=== PATIENT | female | born 1990 | race Caucasian/White ===

== ENCOUNTER 2020-04-13 11:38 | Inpatient (IN) ==
[2020-04-13] MEDS ORDERED: OXYTOCIN 30 UNITS/500 ML BAG IV PRN ×2 (11:45→13:14)
--- NOTE | 2020-04-13 11:51 | History & Physical Report ---
Date of Service April 13, 2020 Assessment & Plan (1) Encounter for induction of labor: - 29 yo F here for induction of labor, SROM this morning. - For Pitocin augmentation if not having regular timeable contractions after 1 hour of walking and using her maternity ball. - Continue home asthma medications. - GBS negative, Rubella immune, blood type O+, Ab screen negative. - Repeat UDS today for Hx marijuana use. Last UDS on NOB appointment was negative. - Expect . (2) SROM (spontaneous rupture of membranes): (3) History of marijuana use: (4) Asthma: History of Present Illness Chief Complaint: SROM Primary Care Provider: Theodore Gerard, DO 29 yo F with EDC 04/09/20 admitted with report of SROM this morning, for induction of labor. This morning reports several gushes of fluid in a row, clear with some blood tinge, possibly around 8am however is not 100% sure. Was seen by Dr. Marrero today in the office and found to be ruptured, 2cm dilated, 75% effaced. plan does not include epidural at this time. Confirms good movement, no contractions. Medical Hx: PCOS (this was spontaneous, has Hx of irregular periods sometimes q3 months prior to ), Asthma (at home uses montelukast daily, budesonide inh daily, albuterol inh PRN) Surgical Hx: wisdom tooth extraction Loss Prevention Agent Hx: no Hx abnormal PAPs; Hx chlamydia infection 2 years ago (chlamydia testing 12/2019 negative) Social Hx: Hx marijuana abuse (NOB UDS negative), lives with FOB Labs: Blood type: O+ Antibody screen: negative Rubella status: immune VDLR/RPR: nonreactive Gonorrhea: negative Chlamydia: negative HIV: negative GBS: negative HbSAg: negative Glucose tolerance test x2: normal Allergies Allergy/AdvReac Type Severity Reaction Status Date / Time No Known Allergies Allergy Verified 04/13/20 10:19 Home Medications Home Medications Medication Instructions Recorded Confirmed Type prenat.vits,milena,wwz-[id number] 1 tab PO DAILY 10/14/19 04/13/20 History albuterol sulfate 1 puff INHALATION DAILY PRN 10/25/19 04/13/20 History albuterol sulfate 0.63 mg/3 mL 0.63 mg INH TID PRN #75 ml 11/07/19 04/13/20 Rx solution for nebulization budesonide 90 mcg/actuation breath 1 puffs INH BID #1 ea 11/07/19 04/13/20 Rx activated powder inhaler famotidine 20 mg tablet 20 mg PO DAILY #30 tab 02/23/20 04/13/20 Rx montelukast 10 mg tablet 10 mg PO PM #90 tab 04/03/20 04/13/20 Rx Patient History Surgical History S/P wisdom tooth extraction Family History Mother Diabetes Hypertension Anxiety Bipolar disorder Depression Father Heart murmur Grandfather Prostate cancer, Onset Age: 65 Grandmother Pancreatic cancer, Onset Age: 47 Social History Preferred Language: Serbian Beliefs That Will Affect Care: None marital status: Single marital status details: Jag Gongoraer (27) [phone] Current Living Situation: Other Current Living Situation Comment: lives with fob, cat-fob changing litter current occupational status: employed 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 Feels Safe at Home: Yes Smoking Status: Never smoker Hx Alcohol Use: No Hx Substance Use: No Review of Systems Constitutional: denies fever, chills, sweats, headache Respiratory: denies SOB, difficulty breathing Cardiac: denies CP, chest palpitations, chest pressure Breast: denies breast pain : denies dysuria Physical Exam Physical Exam: General: patient is alert and oriented, in NAD Cardiac: +S1/S2, no murmurs rubs or gallops Respiratory: lungs CTA b/l, anteriorly and posteriorly, no wheezes rales or rhonchi, no increased work of breathing, symmetric chest rise, no respiratory distress Abdomen: Gravid, fundal height is term, + FHTs, baby is presenting vertex, no palpable contractions, EFW 8-9 lbs Uterus: uterine fundus firm Lower Extremities: no LE edema or swelling, no deep calf pain, Mahtew's sign negative b/l Genitourinary: Manual OB Exam: + cervical dilation 3 cm, + cervical effacement (75%) and + station -2 OB Exam Monitor Tracing: + external FHT monitor used, + external uterine monitor used and + normal FHT variability Monitoring External Monitor 140s with good variability Tocodynamometer no timeable contractions Supervising Physician Co-Signing Physician Notes Resident Physician Supervision Note: I was present with Dr. Ballard during the history and exam. I discussed the case with the resident and agree with the findings and plan as documented in the note. Any exceptions or clarifications are listed here: Unclear as to when patient ruptured. GBS (-), will hold antibiotics unless signs and sx's of chorio develops. Documented By: Berny Keller Jr, MD, FACOG Resident Activity Tracking Resident Involvement: Resident Care Provided Care Provided: OB Delivery
[2020-04-13 12:08] LABS: Hematocrit (blood only) 37.4 % (37-47); Hemoglobin 13.1 g/dL (12.0-16.0); Mean Corpuscular Hemoglobin 30.1 pg (25-34); Mean Platelet Volume 10.6 fL (7.4-10.4); Platelet Count 177 K/uL (130-400); RDW Coefficient of Variation 13.5 % (11.5-14.5); RDW Standard Deviation 42.5 fL (36.4-46.3); Red Blood Count 4.35 M/uL (4.2-5.4); White Blood Count 13.02 K/uL (4.8-10.8)
[2020-04-13] MEDS: LACTATED RINGER'S 1,000 ML IV PRN ×3 (12:20→22:51)
[2020-04-13 12:47] LABS: Amphetamines+Metham, Urine Neg (Neg); Barbiturates, Urine Neg (Neg); Benzodiazepine, Urine Neg (Neg); Cocaine, Urine Neg (Neg); MDMA (Ecstacy), Urine Neg (Neg); Methadone, Urine Neg (Neg); Opiate, Urine Neg (Neg); Phencyclidine, Urine Neg (Neg)
[2020-04-13] MEDS ORDERED: ALBUTEROL HFA 8 GM INHALER INH PRN (13:34)
--- NOTE | 2020-04-13 18:22 | Labor Progress Brief Note ---
Date of Service April 13, 2020 Subjective Reason For Note: Routine Evaluation Assessment & Plan (1) SROM (spontaneous rupture of membranes): - tracing Cat II - continue pitocin - doing well Physical Exam Genitourinary: Cervix: no change, AROM of forebag, moderate meconium, IUPC placed Results & Data Vital Signs (Past 12 Hours) Vital Signs Temp Pulse Resp BP 04/13/20 18:15 68 140/78 04/13/20 17:30 18 04/13/20 17:00 98.1 F 78 18 155/70 H 04/13/20 16:17 18 04/13/20 16:00 20 04/13/20 15:56 98.6 F 97 H 151/92 H 04/13/20 15:30 20 04/13/20 15:03 20 04/13/20 15:00 20 04/13/20 14:35 20 04/13/20 14:22 94 H 144/78 H 04/13/20 14:20 98.8 F 20 04/13/20 13:10 20 04/13/20 12:52 77 142/73 H 04/13/20 12:51 90 154/75 H 04/13/20 12:40 20 04/13/20 12:07 86 139/98 04/13/20 11:58 86 139/98 04/13/20 11:53 98.6 F 18 Coding Level of Care Code None Diagnoses SROM (spontaneous rupture of membranes)
[2020-04-13] MEDS: FLUTICASONE FUROATE 100MCG 14 PUFFS/INHALER INH SCH ×2 (18:33→22:50)
--- NOTE | 2020-04-13 21:44 | Labor Progress Brief Note ---
Date of Service April 13, 2020 Subjective Reason For Note: Routine Evaluation Assessment & Plan (1) SROM (spontaneous rupture of membranes): - tracing Cat 11, good accelerations and variability - pitocin at 20mU, inadequate labor - will allow nursing to increase to 30mU - all questions answered of patient Physical Exam Genitourinary: Cx: deferred Results & Data Vital Signs (Past 12 Hours) Vital Signs Temp Pulse Resp BP 04/13/20 21:16 73 137/76 04/13/20 21:15 99.1 F 04/13/20 20:02 67 130/80 04/13/20 19:09 99.1 F 75 20 140/81 04/13/20 19:01 18 04/13/20 18:30 18 04/13/20 18:15 98.6 F 68 18 140/78 04/13/20 18:00 18 04/13/20 17:30 18 04/13/20 17:00 98.1 F 78 18 155/70 H 04/13/20 16:17 18 04/13/20 16:00 20 04/13/20 15:56 98.6 F 97 H 151/92 H 04/13/20 15:30 20 04/13/20 15:03 20 04/13/20 15:00 20 04/13/20 14:35 20 04/13/20 14:22 94 H 144/78 H 04/13/20 14:20 98.8 F 20 04/13/20 13:10 20 04/13/20 12:52 77 142/73 H 04/13/20 12:51 90 154/75 H 04/13/20 12:40 20 04/13/20 12:07 86 139/98 04/13/20 11:58 86 139/98 04/13/20 11:53 98.6 F 18 Coding Level of Care Code None Diagnoses SROM (spontaneous rupture of membranes)
[2020-04-13] MEDS ORDERED: ePHEDrine sulfate 50 MG/ML AMP ONE (22:41)
[2020-04-13] MEDS ORDERED: BUPIVACAINE 0.25% 30 ML VIAL ONE (22:41)
[2020-04-13] MEDS ORDERED: fentaNYL citrate 100 MCG/2 ML VIAL ONE (22:41)
[2020-04-13] MEDS ORDERED: fentaNYL 2MCG/ML ROPIV 1.25MG/ML 100 ML BAG EPI ONE (22:42)
--- NOTE | 2020-04-13 23:51 | Anesthesiology Consultation ---
Date of Service April 13, 2020 Assessment & Plan Chart Review Chart Review: Acceptable Risk for Labor Epidural Consults Requested none History Height/Weight Height: 5 ft 2 in Weight: 105.233 kg Allergies Allergy/AdvReac Type Severity Reaction Status Date / Time No Known Allergies Allergy Verified 04/13/20 10:19 Medications Home Medications Medication Instructions Recorded Confirmed Last Taken prenat.vits,milena,sbj-[id number]-leyih 1 tab PO DAILY 10/14/19 04/13/20 04/12/20 17:00 albuterol sulfate 1 puff INHALATION DAILY PRN 10/25/19 04/13/20 Unknown albuterol sulfate 0.63 mg/3 mL 0.63 mg INH TID PRN #75 ml 11/07/19 04/13/20 Unkn own solution for nebulization budesonide 90 mcg/actuation breath 1 puffs INH BID #1 ea 11/07/19 04/13/20 04/12/20 17:00 activated powder inhaler famotidine 20 mg tablet 20 mg PO DAILY #30 tab 02/23/20 04/13/20 04/12/20 17:00 montelukast 10 mg tablet 10 mg PO PM #90 tab 04/03/20 04/13/20 04/12/20 17:00 Active Medications Generic Name Dose Route Start Last Admin Trade Name Freq PRN Reason Stop Dose Admin Fluticasone Furoate 1 puffs 04/13/20 15:00 04/13/20 22:50 Arnuity Ellipta 100mcg INH 05/13/20 14:59 1 puffs DAILY LUCERO Administration Lactated Ringer's 1,000 mls @ 125 mls/hr 04/13/20 11:45 04/13/20 22:52 Lr IV 04/15/20 11:44 999 mls/hr .Q8H PRN Infusion L&D Protocol Protocol Oxytocin 30 units in 500 mls @ 24 mls/hr 04/13/20 13:14 04/13/20 22:30 Pitocin IV 04/15/20 13:13 1.44 units/hr .[id number] PRN 24 mls/hr Labor Induction/Augmentation Titration Protocol 1.44 UNITS/HR Past Family History Family History Mother Diabetes Hypertension Anxiety Bipolar disorder Depression Father Heart murmur Grandfather Prostate cancer, Onset Age: 65 Grandmother Pancreatic cancer, Onset Age: 47 Past Surgical History Surgical History S/P wisdom tooth extraction Social History Smoking Status: Never smoker Hx Alcohol Use: No Hx Substance Use: No Physical Exam Vital Signs Last Vital Signs Temp 36.8 C 04/13/20 23:40 Pulse 108 H 04/13/20 23:46 Resp 20 04/13/20 23:40 BP 141/64 H 04/13/20 23:44 Pulse Ox 97 04/13/20 23:46 Testing Laboratory Results 04/13/20 12:01
[2020-04-13] MEDS ORDERED: NALOXONE HCL 1 MG in SODIUM CHLORIDE 0.9% 1000ML 1,000 ML IV PRN (23:53)
[2020-04-13] MEDS ORDERED: DiphenhydrAMINE HCL 50 MG/ML VIAL IV PRN (23:53)
[2020-04-13] MEDS ORDERED: ePHEDrine sulfate 50 MG/ML AMP IV PRN (23:53)
[2020-04-13] MEDS ORDERED: fentaNYL 2MCG/ML ROPIV 1.25MG/ML 100 ML BAG EPI PRN (23:53)
[2020-04-13] MEDS ORDERED: NALBUPHINE HCL INJ 10 MG/ML AMP IV PRN (23:53)
[2020-04-13] MEDS ORDERED: NALOXONE HCL 0.4 MG/1 ML VIAL/CARP IV PRN (23:53)
[2020-04-14] MEDS: MONTELUKAST SODIUM 10 MG TABLET PO SCH ×2 (00:05→20:09)
--- NOTE | 2020-04-14 02:10 | Labor Progress Brief Note ---
Date of Service April 14, 2020 Subjective Reason For Note: Routine Evaluation Assessment & Plan (1) SROM (spontaneous rupture of membranes): - tracing Cat II, variability with acclerations - pt now comfortable with epidural - new IUPC placed - will evaluate labor strength with new IUPC Physical Exam Genitourinary: Cx: 80/-2. meconium. new IUPC placed Results & Data Vital Signs (Past 12 Hours) Vital Signs Temp Pulse Resp BP Pulse Ox 04/14/20 02:06 90 94 04/14/20 02:04 89 94 04/14/20 02:01 85 111/57 L 95 04/14/20 02:00 18 04/14/20 01:57 85 94 04/14/20 01:56 86 95 04/14/20 01:51 87 94 04/14/20 01:46 84 109/60 95 04/14/20 01:44 86 94 04/14/20 01:41 87 95 04/14/20 01:38 87 94 04/14/20 01:36 88 95 04/14/20 01:33 86 94 04/14/20 01:31 83 107/56 L 95 04/14/20 01:30 18 04/14/20 01:26 86 95 04/14/20 01:25 87 94 04/14/20 01:21 84 95 04/14/20 01:16 82 119/61 95 04/14/20 01:11 82 96 04/14/20 01:06 82 96 04/14/20 01:01 78 95 04/14/20 01:00 98.4 F 87 20 130/59 L 04/14/20 00:56 87 94 04/14/20 00:55 83 94 04/14/20 00:51 84 94 04/14/20 00:49 80 94 04/14/20 00:46 76 94 04/14/20 00:45 81 123/59 L 04/14/20 00:44 90 93 04/14/20 00:41 93 H 94 04/14/20 00:38 95 H 94 04/14/20 00:36 92 H 95 04/14/20 00:32 88 133/63 94 04/14/20 00:31 89 95 04/14/20 00:30 18 04/14/20 00:26 98 H 95 04/14/20 00:21 85 95 04/14/20 00:16 92 H 124/59 L 95 04/14/20 00:11 85 95 04/14/20 00:06 85 96 04/14/20 00:01 86 96 04/14/20 00:00 20 04/13/20 23:59 128/71 04/13/20 23:56 90 97 04/13/20 23:55 81 20 121/70 04/13/20 23:51 79 128/70 97 04/13/20 23:50 20 04/13/20 23:46 108 H 97 04/13/20 23:45 20 04/13/20 23:44 93 H 141/64 H 04/13/20 23:42 91 H 129/60 04/13/20 23:41 91 H 97 04/13/20 23:40 98.2 F 97 H 20 132/56 L 04/13/20 23:38 96 H 133/66 04/13/20 23:36 95 H 135/63 97 04/13/20 23:34 92 H 132/61 04/13/20 23:32 94 H 137/64 04/13/20 23:31 83 98 04/13/20 23:30 83 20 127/56 L 04/13/20 23:28 82 141/65 H 04/13/20 23:26 78 141/65 H 96 04/13/20 23:25 20 04/13/20 23:24 77 142/68 H 04/13/20 23:22 75 133/69 04/13/20 23:21 68 98 04/13/20 23:20 75 20 125/69 04/13/20 23:16 74 99 04/13/20 23:11 79 99 04/13/20 23:10 75 155/83 H 04/13/20 23:06 86 98 04/13/20 22:05 67 151/80 H 04/13/20 21:16 73 137/76 04/13/20 21:15 99.1 F 04/13/20 20:02 67 130/80 04/13/20 19:09 99.1 F 75 20 140/81 05 19:01 18 04/13/20 18:30 18 04/13/20 18:15 98.6 F 68 18 140/78 04/13/20 18:00 18 04/13/20 17:30 18 04/13/20 17:00 98.1 F 78 18 155/70 H 04/13/20 16:17 18 04/13/20 16:00 20 04/13/20 15:56 98.6 F 97 H 151/92 H 04/13/20 15:30 20 04/13/20 15:03 20 04/13/20 15:00 20 04/13/20 14:35 20 04/13/20 14:22 94 H 144/78 H 04/13/20 14:20 98.8 F 20 Coding Level of Care Code None Diagnoses SROM (spontaneous rupture of membranes)
[2020-04-14] MEDS: LACTATED RINGER'S 1,000 ML IV PRN (04:49)
--- NOTE | 2020-04-14 06:43 | Labor Progress Brief Note ---
Date of Service April 14, 2020 Subjective Reason For Note: Routine Evaluation Assessment & Plan (1) SROM (spontaneous rupture of membranes): - tracing Cast II with moderate variability with acclerations - IUPC not functioning well - pitocin at 40mU - slow cervical change being made - will continue with pit - all questions answered of the patient Physical Exam Genitourinary: Cervix: 6-/-1 Results & Data Vital Signs (Past 12 Hours) Vital Signs Temp Pulse Resp BP Pulse Ox 04/14/20 06:36 83 98 04/14/20 06:31 88 153/70 H 98 04/14/20 06:30 18 04/14/20 06:26 94 H 96 04/14/20 06:21 99 H 97 04/14/20 06:16 85 98 04/14/20 06:15 86 158/86 H 04/14/20 06:11 85 97 04/14/20 06:06 85 97 04/14/20 06:05 100.0 F H 20 04/14/20 06:01 87 138/83 96 04/14/20 06:00 18 04/14/20 05:58 97 H 94 04/14/20 05:56 93 H 94 04/14/20 05:51 89 94 04/14/20 05:47 90 94 04/14/20 05:46 93 H 139/71 95 04/14/20 05:41 87 94 04/14/20 05:40 86 94 04/14/20 05:36 86 95 04/14/20 05:35 87 94 04/14/20 05:31 87 95 04/14/20 05:30 84 18 149/68 H 94 04/14/20 05:26 89 95 04/14/20 05:24 88 94 04/14/20 05:21 84 95 04/14/20 05:16 84 146/77 H 95 04/14/20 05:11 83 96 04/14/20 05:06 89 97 04/14/20 05:01 85 146/87 H 96 04/14/20 04:59 18 04/14/20 04:56 83 97 04/14/20 04:51 82 98 04/14/20 04:46 90 130/76 96 04/14/20 04:41 82 98 04/14/20 04:36 83 98 04/14/20 04:31 82 98 04/14/20 04:30 81 20 139/67 04/14/20 04:26 80 98 04/14/20 04:21 80 98 04/14/20 04:16 80 97 04/14/20 04:15 99.5 F 80 129/60 04/14/20 04:11 78 96 04/14/20 04:06 79 97 04/14/20 04:01 76 129/58 L 95 04/14/20 04:00 20 04/14/20 03:56 84 96 04/14/20 03:51 86 95 04/14/20 03:47 83 139/60 93 04/14/20 03:46 83 95 04/14/20 03:42 88 94 04/14/20 03:41 91 H 95 04/14/20 03:36 86 94 04/14/20 03:31 84 128/57 L 95 04/14/20 03:29 85 18 94 04/14/20 03:26 84 95 04/14/20 03:23 83 94 04/14/20 03:21 81 95 04/14/20 03:18 85 94 04/14/20 03:16 84 95 04/14/20 03:15 81 123/61 04/14/20 03:11 84 95 04/14/20 03:07 82 94 04/14/20 03:06 81 95 04/14/20 03:01 82 120/67 95 04/14/20 02:56 83 95 04/14/20 02:55 82 94 04/14/20 02:51 79 94 04/14/20 02:49 80 94 04/14/20 02:47 77 118/63 04/14/20 02:46 81 94 04/14/20 02:44 81 94 04/14/20 02:41 82 94 04/14/20 02:39 80 94 04/14/20 02:36 80 94 04/14/20 02:34 81 94 04/14/20 02:32 78 124/59 L 06 02:31 80 94 04/14/20 02:30 20 04/14/20 02:27 79 94 04/14/20 02:26 81 94 04/14/20 02:22 79 94 04/14/20 02:21 79 95 04/14/20 02:16 82 95 04/14/20 02:15 79 112/65 04/14/20 02:11 81 95 04/14/20 02:10 98.4 F 04/14/20 02:06 90 94 04/14/20 02:04 89 94 04/14/20 02:01 85 111/57 L 95 04/14/20 02:00 18 04/14/20 01:57 85 94 04/14/20 01:56 86 95 04/14/20 01:51 87 94 04/14/20 01:46 84 109/60 95 04/14/20 01:44 86 94 04/14/20 01:41 87 95 04/14/20 01:38 87 94 04/14/20 01:36 88 95 04/14/20 01:33 86 94 04/14/20 01:31 83 107/56 L 95 04/14/20 01:30 18 04/14/20 01:26 86 95 04/14/20 01:25 87 94 04/14/20 01:21 84 95 04/14/20 01:16 82 119/61 95 04/14/20 01:11 82 96 04/14/20 01:06 82 96 04/14/20 01:01 78 95 04/14/20 01:00 98.4 F 87 20 130/59 L 04/14/20 00:56 87 94 04/14/20 00:55 83 94 04/14/20 00:51 84 94 04/14/20 00:49 80 94 04/14/20 00:46 76 94 04/14/20 00:45 81 123/59 L 04/14/20 00:44 90 93 04/14/20 00:41 93 H 94 04/14/20 00:38 95 H 94 04/14/20 00:36 92 H 95 04/14/20 00:32 88 133/63 94 04/14/20 00:31 89 95 04/14/20 00:30 18 04/14/20 00:26 98 H 95 04/14/20 00:21 85 95 04/14/20 00:16 92 H 124/59 L 95 04/14/20 00:11 85 95 04/14/20 00:06 85 96 04/14/20 00:01 86 96 04/14/20 00:00 20 04/13/20 23:59 128/71 04/13/20 23:56 90 97 04/13/20 23:55 81 20 121/70 04/13/20 23:51 79 128/70 97 04/13/20 23:50 20 04/13/20 23:46 108 H 97 04/13/20 23:45 20 04/13/20 23:44 93 H 141/64 H 04/13/20 23:42 91 H 129/60 04/13/20 23:41 91 H 97 04/13/20 23:40 98.2 F 97 H 20 132/56 L 04/13/20 23:38 96 H 133/66 04/13/20 23:36 95 H 135/63 97 04/13/20 23:34 92 H 132/61 04/13/20 23:32 94 H 137/64 04/13/20 23:31 83 98 04/13/20 23:30 83 20 127/56 L 04/13/20 23:28 82 141/65 H 04/13/20 23:26 78 141/65 H 96 04/13/20 23:25 20 04/13/20 23:24 77 142/68 H 04/13/20 23:22 75 133/69 04/13/20 23:21 68 98 04/13/20 23:20 75 20 125/69 04/13/20 23:16 74 99 04/13/20 23:11 79 99 04/13/20 23:10 75 155/83 H 04/13/20 23:06 86 98 04/13/20 22:05 67 151/80 H 04/13/20 21:16 73 137/76 04/13/20 21:15 99.1 F 04/13/20 20:02 67 130/80 04/13/20 19:09 99.1 F 75 20 140/81 04/13/20 19:01 18 Coding Level of Care Code None Diagnoses SROM (spontaneous rupture of membranes)
[2020-04-14] MEDS ORDERED: ONDANSETRON INJ 2 MG/ML 2 ML VIAL IV PRN ×3 (07:58→10:16)
[2020-04-14] MEDS ORDERED: ONDANSETRON INJ 2 MG/ML 2 ML VIAL ONE (08:01)
[2020-04-14] MEDS ORDERED: CITRIC ACID/SODIUM CITRATE 15 ML UDC ONE (08:40)
--- NOTE | 2020-04-14 08:43 | Labor Progress Brief Note ---
Date of Service April 14, 2020 Subjective Reason For Note: Routine Evaluation Assessment & Plan (1) SROM (spontaneous rupture of membranes): - tracing re-assuring - prolonged ROM - pitocin at 40mU - discussed with patient and - recommend C/S for FTP - risk/benefits of C/S discussed - all questions answered - permit signed - Peds/Anesthesia informed Physical Exam Genitourinary: Cervix: No change Results & Data Vital Signs (Past 12 Hours) Vital Signs Temp Pulse Resp BP Pulse Ox 04/14/20 08:36 104 H 99 04/14/20 08:31 86 154/76 H 99 04/14/20 08:26 84 99 04/14/20 08:21 85 98 04/14/20 08:16 85 98 04/14/20 08:15 86 153/76 H 04/14/20 08:11 87 96 04/14/20 08:06 85 97 04/14/20 08:01 85 99 04/14/20 08:00 83 159/77 H 04/14/20 07:56 86 99 04/14/20 07:51 87 98 04/14/20 07:47 91 H 152/80 H 04/14/20 07:46 90 98 04/14/20 07:41 88 99 04/14/20 07:36 86 99 04/14/20 07:31 86 99 04/14/20 07:30 89 139/85 04/14/20 07:26 85 97 04/14/20 07:21 90 97 04/14/20 07:16 98.4 F 86 20 144/84 H 97 04/14/20 07:11 81 98 04/14/20 07:06 88 97 04/14/20 07:01 79 99 04/14/20 07:00 86 20 156/70 H 04/14/20 06:56 78 99 04/14/20 06:51 84 100 04/14/20 06:46 87 99 04/14/20 06:45 89 159/75 H 04/14/20 06:41 89 99 04/14/20 06:36 83 98 04/14/20 06:31 88 153/70 H 98 04/14/20 06:30 18 04/14/20 06:26 94 H 96 04/14/20 06:21 99 H 97 04/14/20 06:16 85 98 06/06/20 06:15 86 158/86 H 04/14/20 06:11 85 97 04/14/20 06:06 85 97 04/14/20 06:05 100.0 F H 20 04/14/20 06:01 87 138/83 96 04/14/20 06:00 18 04/14/20 05:58 97 H 94 04/14/20 05:56 93 H 94 04/14/20 05:51 89 94 04/14/20 05:47 90 94 04/14/20 05:46 93 H 139/71 95 04/14/20 05:41 87 94 04/14/20 05:40 86 94 04/14/20 05:36 86 95 04/14/20 05:35 87 94 04/14/20 05:31 87 95 04/14/20 05:30 84 18 149/68 H 94 04/14/20 05:26 89 95 04/14/20 05:24 88 94 04/14/20 05:21 84 95 04/14/20 05:16 84 146/77 H 95 04/14/20 05:11 83 96 04/14/20 05:06 89 97 04/14/20 05:01 85 146/87 H 96 04/14/20 04:59 18 04/14/20 04:56 83 97 04/14/20 04:51 82 98 04/14/20 04:46 90 130/76 96 04/14/20 04:41 82 98 04/14/20 04:36 83 98 04/14/20 04:31 82 98 04/14/20 04:30 81 20 139/67 04/14/20 04:26 80 98 04/14/20 04:21 80 98 04/14/20 04:16 80 97 04/14/20 04:15 99.5 F 80 129/60 04/14/20 04:11 78 96 04/14/20 04:06 79 97 04/14/20 04:01 76 129/58 L 95 04/14/20 04:00 20 04/14/20 03:56 84 96 04/14/20 03:51 86 95 04/14/20 03:47 83 139/60 93 04/14/20 03:46 83 95 04/14/20 03:42 88 94 04/14/20 03:41 91 H 95 04/14/20 03:36 86 94 04/14/20 03:31 84 128/57 L 95 04/14/20 03:29 85 18 94 04/14/20 03:26 84 95 04/14/20 03:23 83 94 04/14/20 03:21 81 95 04/14/20 03:18 85 94 04/14/20 03:16 84 95 04/14/20 03:15 81 123/61 04/14/20 03:11 84 95 04/14/20 03:07 82 94 04/14/20 03:06 81 95 04/14/20 03:01 82 120/67 95 04/14/20 02:56 83 95 04/14/20 02:55 82 94 04/14/20 02:51 79 94 04/14/20 02:49 80 94 04/14/20 02:47 77 118/63 04/14/20 02:46 81 94 04/14/20 02:44 81 94 04/14/20 02:41 82 94 04/14/20 02:39 80 94 04/14/20 02:36 80 94 04/14/20 02:34 81 94 04/14/20 02:32 78 124/59 L 04/14/20 02:31 80 94 04/14/20 02:30 20 04/14/20 02:27 79 94 04/14/20 02:26 81 94 04/14/20 02:22 79 94 04/14/20 02:21 79 95 04/14/20 02:16 82 95 04/14/20 02:15 79 112/65 04/14/20 02:11 81 95 04/14/20 02:10 98.4 F 04/14/20 02:06 90 94 04/14/20 02:04 89 94 04/14/20 02:01 85 111/57 L 95 04/14/20 02:00 18 04/14/20 01:57 85 94 04/14/20 01:56 86 95 04/14/20 01:51 87 94 04/14/20 01:46 84 109/60 95 04/14/20 01:44 86 94 04/14/20 01:41 87 95 04/14/20 01:38 87 94 04/14/20 01:36 88 95 06/06/20 01:33 86 94 04/14/20 01:31 83 107/56 L 95 04/14/20 01:30 18 04/14/20 01:26 86 95 04/14/20 01:25 87 94 04/14/20 01:21 84 95 04/14/20 01:16 82 119/61 95 04/14/20 01:11 82 96 04/14/20 01:06 82 96 04/14/20 01:01 78 95 04/14/20 01:00 98.4 F 87 20 130/59 L 04/14/20 00:56 87 94 04/14/20 00:55 83 94 04/14/20 00:51 84 94 04/14/20 00:49 80 94 04/14/20 00:46 76 94 04/14/20 00:45 81 123/59 L 04/14/20 00:44 90 93 04/14/20 00:41 93 H 94 04/14/20 00:38 95 H 94 04/14/20 00:36 92 H 95 04/14/20 00:32 88 133/63 94 04/14/20 00:31 89 95 04/14/20 00:30 18 04/14/20 00:26 98 H 95 04/14/20 00:21 85 95 04/14/20 00:16 92 H 124/59 L 95 04/14/20 00:11 85 95 04/14/20 00:06 85 96 04/14/20 00:01 86 96 04/14/20 00:00 20 04/13/20 23:59 128/71 04/13/20 23:56 90 97 04/13/20 23:55 81 20 121/70 04/13/20 23:51 79 128/70 97 04/13/20 23:50 20 04/13/20 23:46 108 H 97 04/13/20 23:45 20 04/13/20 23:44 93 H 141/64 H 04/13/20 23:42 91 H 129/60 04/13/20 23:41 91 H 97 04/13/20 23:40 98.2 F 97 H 20 132/56 L 04/13/20 23:38 96 H 133/66 04/13/20 23:36 95 H 135/63 97 04/13/20 23:34 92 H 132/61 04/13/20 23:32 94 H 137/64 04/13/20 23:31 83 98 04/13/20 23:30 83 20 127/56 L 04/13/20 23:28 82 141/65 H 04/13/20 23:26 78 141/65 H 96 04/13/20 23:25 20 04/13/20 23:24 77 142/68 H 04/13/20 23:22 75 133/69 04/13/20 23:21 68 98 04/13/20 23:20 75 20 125/69 04/13/20 23:16 74 99 04/13/20 23:11 79 99 04/13/20 23:10 75 155/83 H 04/13/20 23:06 86 98 04/13/20 22:05 67 151/80 H 04/13/20 21:16 73 137/76 04/13/20 21:15 99.1 F Coding Level of Care Code None Diagnoses SROM (spontaneous rupture of membranes)
[2020-04-14] MEDS ORDERED: CITRIC ACID/SODIUM CITRATE 15 ML UDC PO SCH (08:45)
[2020-04-14] MEDS ORDERED: LACTATED RINGER'S 1,000 ML IV SCH ×2 (08:45→10:00)
[2020-04-14] MEDS ORDERED: CEFAZOLIN 3000MG 65 ML IV SCH (09:00)
[2020-04-14 09:01] LABS: Basophils # (auto) 0.01 K/uL (0-0.2); Basophils % (auto) 0.1 %; Hematocrit (blood only) 37.4 % (37-47); Hemoglobin 13.1 g/dL (12.0-16.0); Immature Granulocytes # (auto) 0.06 K/uL (0.00-0.02); Immature Granulocytes % (auto) 0.4 %; Lymphocytes # (auto) 1.06 K/uL (1.2-3.4); Mean Corpuscular Hemoglobin 30.6 pg (25-34); Mean Corpuscular Volume 87.4 fL (80-100); Mean Platelet Volume 10.5 fL (7.4-10.4); Monocytes # (auto) 0.93 K/uL (0.11-0.59); Monocytes % (auto) 6.2 %; Neutrophils # (auto) 13.03 K/uL (1.4-6.5); Neutrophils % (auto) 86.3 %; Platelet Count 173 K/uL (130-400); RDW Coefficient of Variation 13.7 % (11.5-14.5); RDW Standard Deviation 43.4 fL (36.4-46.3); Red Blood Count 4.28 M/uL (4.2-5.4); White Blood Count 15.09 K/uL (4.8-10.8)
[2020-04-14] MEDS ORDERED: OXYTOCIN 10 UNITS/ML VIAL ONE ×6 (09:02→10:12)
[2020-04-14] MEDS ORDERED: OXYTOCIN 10 UNITS/ML VIAL IM ONE (09:39)
[2020-04-14] MEDS ORDERED: MoRPHine SULFATE PF 1 MG/ML 10 ML AMP/VIAL ONE (09:54)
[2020-04-14] MEDS ORDERED: MAGNESIUM HYDROXIDE SUSP 30 ML UDC PO PRN (10:00)
[2020-04-14] MEDS ORDERED: SUPERCREAM 0.870% 15 GM JAR EXT PRN (10:00)
[2020-04-14] MEDS ORDERED: DIPHTHERIA/TETANUS/PERTUSSIS 0.5 ML SYR/VIAL IM ONE (10:00)
[2020-04-14] MEDS ORDERED: HYDROCORTISONE ACETATE 25 MG SUPP PR PRN (10:00)
[2020-04-14] MEDS ORDERED: BENZOCAINE 20% AER SPR 82.5 GM CAN EXT PRN (10:00)
[2020-04-14] MEDS ORDERED: SENNA 8.6 MG TAB PO PRN (10:00)
--- NOTE | 2020-04-14 10:02 | Post Operative Brief Note ---
PG Immediate Post Op with CF Date of Surgery April 14, 2020 Pre & Post Diagnosis Operation Date: 04/14/20 08:50 Pre-Op Diagnosis: 1 - Post Dates Gestation 2 - Prolonged Rupture of Membranes 3 - Failure to Progress Post-Op Diagnosis: Same as Preop I identified the patient and participated in the time-out.: Yes Procedure Operation Date: 04/14/20 08:50 Actual Procedures p Section in LD; LIVE MALE AT 0936(Bilateral) - Berny Keller Jr, MD, FACOG Surgeon Berny Keller Jr, MD, FACOG [employer] M[employer] Machine Set Up Operator Bernard Estimated Blood Loss 800 Findings See Below (viable male, Apgars 6/9; weight of 9 lbs 0 ozs, gasses pending, normal appearing tubes, PCOS appearing ovaries) Specimens Specimen Description: PLACENTA (EXAM) CORD BLOOD CORD GASES Drains Zamora Catheter (IN PLACE AND DRAINING FROM L&D PRIOR TO COMING TO OR.)
[2020-04-14] MEDS ORDERED: PHENYLEPHRINE 100MCG/ML 5ML SYR ONE (10:07)
[2020-04-14] MEDS ORDERED: METOCLOPRAMIDE HCL 20 MG in SODIUM CHLORIDE 0.9% 50 ML IV PRN (10:16)
[2020-04-14] MEDS ORDERED: DiphenhydrAMINE HCL 50 MG/ML VIAL IV PRN ×2 (10:16)
[2020-04-14] MEDS ORDERED: MEPERIDINE HCL 25 MG/ML CARP/VIAL IV PRN (10:16)
[2020-04-14] MEDS ORDERED: MoRPHine SULFATE PF 1 MG/ML 10 ML AMP/VIAL INT SPINAL ONE (10:16)
[2020-04-14] MEDS ORDERED: NALBUPHINE HCL INJ 10 MG/ML AMP IV PRN (10:16)
[2020-04-14] MEDS ORDERED: HYDROmorphone INJ 0.5 MG/0.5 ML SYR IV PRN (10:16)
[2020-04-14] MEDS ORDERED: LACTATED RINGER'S 500 ML IV PRN (10:16)
[2020-04-14] MEDS ORDERED: NALOXONE HCL 0.08 MG in SYRINGE 1.8 ML IV PRN (10:16)
[2020-04-14] MEDS ORDERED: ePHEDrine sulfate 50 MG/ML AMP IV PRN (10:16)
[2020-04-14] MEDS ORDERED: MoRPHine SULFATE 2 MG/ML CARP IV PRN (10:16)
[2020-04-14] MEDS ORDERED: NALOXONE HCL 1 MG in SODIUM CHLORIDE 0.9% 1000ML 1,000 ML IV PRN (10:16)
[2020-04-14] MEDS ORDERED: NALOXONE HCL 0.4 MG/1 ML VIAL/CARP IV PRN (10:16)
--- NOTE | 2020-04-14 10:24 | Anesthesia Procedure Note ---
Date of Service April 14, 2020 Anesthesia Post Epidural Note Vital Signs Vital Signs: Temp Pulse Resp BP Pulse Ox 36.9 C 89 20 102/46 L 97 04/14/20 07:16 04/14/20 10:22 04/14/20 07:16 04/14/20 10:17 04/14/20 10:22 Pain Intensity Bilateral Abdomen: Pain Intensity: 5 Notes Mental Status: alert / awake / arousable Nausea / Vomiting: adequately controlled Pain: adequately controlled Airway Patency, RR, SpO2: stable & adequate BP & HR: stable & adequate Hydration State: stable & adequate Neuraxial Anesthesia: was administered and sensory block is resolving Anesthetic Complications: no major complications apparent and Pt Satisfied with anesthetic care Epidural: Removed without complications and With tip intact
[2020-04-14] MEDS ORDERED: SODIUM CHLORIDE 0.9% 1000ML 1,000 ML IV SCH (10:30)
[2020-04-14] MEDS ORDERED: NO NARCOTICS OR SEDATIVES SCH (10:30)
[2020-04-14] MEDS ORDERED: DC INTRASPINAL MORPHINE SCH (10:30)
[2020-04-14 10:39] LABS: Base Excess Cord Arterial Bld -2.3 mEq/L (-9-1.8); CO2 Cord Arterial Blood 56 mmHg (39.1-73.5); HCO3 Cord Arterial Blood 26 mmol/L (19.7-28.5); pH Cord Arterial Blood 7.27 (7.1-7.38)
[2020-04-14 10:42] LABS: PO2 Cord Arterial Blood < 10 mmHg (4.1-31.7)
[2020-04-14 10:43] LABS: Base Excess Cord Venous Blood -1.5 mEq/L (-7.7-1.9); Cord Venous Blood HCO3 25 mmol/L (18.4-26.8); Cord Venous Blood PCO2 46 mmHg (30.4-57.2); Cord Venous Blood PO2 21 mmHg (14.1-43.3); Cord Venous Blood pH 7.35 (7.20-7.44); Oxygen Sat Cord Arterial Blood < 60.0 % (<60)
[2020-04-14 10:45] LABS: O2 Saturation Cord Venous Bld < 60.0 % (<68)
[2020-04-14] MEDS ORDERED: OXYTOCIN 20 UNITS in LACTATED RINGER'S 1,000 ML IV SCH (12:00)
[2020-04-14] MEDS ORDERED: ALBUTEROL 0.083% NEBU SOLN 3 ML VIAL INH PRN (12:13)
[2020-04-14] MEDS: KETOROLAC 30 MG/ML VIAL IV PRN ×2 (12:39→20:07)
[2020-04-14] MEDS: SIMETHICONE 80 MG CHEW PO SCH ×3 (14:50→20:07)
[2020-04-14] MEDS ORDERED: miSOPROStoL 200 MCG TAB ONE (15:18)
[2020-04-14] MEDS: FLUTICASONE FUROATE 100MCG 14 PUFFS/INHALER INH SCH (15:22)
[2020-04-14] MEDS ORDERED: miSOPROStoL 200 MCG TAB PR ONE (15:30)
--- NOTE | 2020-04-14 15:49 | Anesthesiology Progress Note ---
Date of Service April 14, 2020 Anesthesia Post Procedure Vital Signs Vital Signs: Temp Pulse Pulse Resp BP BP Pulse Ox 04/14/20 14:05 36.9 C 86 18 117/79 96 04/14/20 13:35 86 18 115/72 95 04/14/20 13:17 109 H 20 94 04/14/20 13:05 37.1 C 86 18 121/78 95 04/14/20 12:41 109 H 94 04/14/20 12:38 107 H 95 04/14/20 12:34 110 H 94 04/14/20 12:33 114 H 95 04/14/20 12:28 110 H 95 04/14/20 12:26 113 H 128/61 04/14/20 12:23 119 H 95 04/14/20 12:18 110 H 94 04/14/20 12:17 37.5 C 109 H 20 122/60 94 04/14/20 12:13 108 H 95 04/14/20 12:08 102 H 94 04/14/20 12:07 106 H 128/61 04/14/20 12:03 104 H 95 04/14/20 12:02 108 H 94 04/14/20 11:57 107 H 158/69 H 93 04/14/20 11:55 103 H 94 04/14/20 11:52 102 H 94 04/14/20 11:49 103 H 94 04/14/20 11:47 37.5 C 105 H 21 143/72 H 94 04/14/20 11:44 97 H 94 04/14/20 11:42 99 H 95 04/14/20 11:37 90 97 04/14/20 11:36 98 H 148/81 H 04/14/20 11:32 92 H 95 04/14/20 11:29 94 H 135/79 04/14/20 11:28 96 H 94 04/14/20 11:27 96 H 95 04/14/20 11:23 88 94 04/14/20 11:22 91 H 94 04/14/20 11:17 38.0 C H 97 H 14 135/66 95 04/14/20 11:16 102 H 135/66 04/14/20 11:12 93 H 93 04/14/20 11:07 88 20 147/66 H 94 04/14/20 11:04 95 H 94 04/14/20 11:02 96 H 95 04/14/20 10:57 96 H 18 189/81 H 94 04/14/20 10:52 92 H 95 04/14/20 10:47 92 H 15 126/60 94 04/14/20 10:46 92 H 126/60 04/14/20 10:42 92 H 95 04/14/20 10:37 81 20 129/58 L 94 04/14/20 10:36 81 129/58 L 04/14/20 10:32 89 97 04/14/20 10:27 92 H 18 116/56 L 95 04/14/20 10:22 89 97 04/14/20 10:17 37.9 C H 89 17 102/46 L 96 04/14/20 09:01 99 H 100 04/14/20 09:00 98 H 160/85 H 04/14/20 08:56 96 H 100 04/14/20 08:51 97 H 100 04/14/20 08:46 100 H 100 04/14/20 08:45 97 H 156/85 H 04/14/20 08:41 95 H 99 04/14/20 08:36 104 H 99 04/14/20 08:31 86 154/76 H 99 04/14/20 08:26 84 99 04/14/20 08:21 85 98 04/14/20 08:16 85 98 04/14/20 08:15 86 153/76 H 04/14/20 08:11 87 96 04/14/20 08:06 85 97 04/14/20 08:01 85 99 04/14/20 08:00 83 159/77 H 04/14/20 07:56 86 99 04/14/20 07:51 87 98 04/14/20 07:47 91 H 152/80 H 04/14/20 07:46 90 98 04/14/20 07:41 88 99 04/14/20 07:36 86 99 04/14/20 07:31 86 99 04/14/20 07:30 89 139/85 04/14/20 07:26 85 97 04/14/20 07:21 90 97 04/14/20 07:16 36.9 C 86 20 144/84 H 97 04/14/20 07:11 81 98 04/14/20 07:06 88 97 04/14/20 07:01 79 99 04/14/20 07:00 86 20 156/70 H 04/14/20 06:56 78 99 04/14/20 06:51 84 100 04/14/20 06:46 87 99 04/14/20 06:45 89 159/75 H 04/14/20 06:41 89 99 04/14/20 06:36 83 98 04/14/20 06:31 88 153/70 H 98 04/14/20 06:30 18 04/14/20 06:26 94 H 96 04/14/20 06:21 99 H 97 04/14/20 06:16 85 98 04/14/20 06:15 86 158/86 H 04/14/20 06:11 85 97 04/14/20 06:06 85 97 04/14/20 06:05 37.8 C H 20 04/14/20 06:01 87 138/83 96 04/14/20 06:00 18 04/14/20 05:58 97 H 94 04/14/20 05:56 93 H 94 04/14/20 05:51 89 94 04/14/20 05:47 90 94 04/14/20 05:46 93 H 139/71 95 04/14/20 05:41 87 94 04/14/20 05:40 86 94 04/14/20 05:36 86 95 04/14/20 05:35 87 94 04/14/20 05:31 87 95 04/14/20 05:30 84 18 149/68 H 94 04/14/20 05:26 89 95 04/14/20 05:24 88 94 04/14/20 05:21 84 95 04/14/20 05:16 84 146/77 H 95 04/14/20 05:11 83 96 04/14/20 05:06 89 97 04/14/20 05:01 85 146/87 H 96 04/14/20 04:59 18 04/14/20 04:56 83 97 04/14/20 04:51 82 98 04/14/20 04:46 90 130/76 96 04/14/20 04:41 82 98 04/14/20 04:36 83 98 04/14/20 04:31 82 98 04/14/20 04:30 81 20 139/67 04/14/20 04:26 80 98 06/06/20 04:21 80 98 04/14/20 04:16 80 97 04/14/20 04:15 37.5 C 80 129/60 04/14/20 04:11 78 96 06 04:06 79 97 06 04:01 76 129/58 L 95 04/14/20 04:00 20 04/14/20 03:56 84 96 04/14/20 03:51 86 95 04/14/20 03:47 83 139/60 93 04/14/20 03:46 83 95 04/14/20 03:42 88 94 04/14/20 03:41 91 H 95 04/14/20 03:36 86 94 04/14/20 03:31 84 128/57 L 95 04/14/20 03:29 85 18 94 04/14/20 03:26 84 95 04/14/20 03:23 83 94 04/14/20 03:21 81 95 04/14/20 03:18 85 94 04/14/20 03:16 84 95 04/14/20 03:15 81 123/61 04/14/20 03:11 84 95 04/14/20 03:07 82 94 04/14/20 03:06 81 95 04/14/20 03:01 82 120/67 95 04/14/20 02:56 83 95 04/14/20 02:55 82 94 04/14/20 02:51 79 94 04/14/20 02:49 80 94 04/14/20 02:47 77 118/63 04/14/20 02:46 81 94 04/14/20 02:44 81 94 04/14/20 02:41 82 94 04/14/20 02:39 80 94 04/14/20 02:36 80 94 04/14/20 02:34 81 94 04/14/20 02:32 78 124/59 L 06 02:31 80 94 04/14/20 02:30 20 04/14/20 02:27 79 94 04/14/20 02:26 81 94 04/14/20 02:22 79 94 04/14/20 02:21 79 95 04/14/20 02:16 82 95 04/14/20 02:15 79 112/65 04/14/20 02:11 81 95 04/14/20 02:10 36.9 C 04/14/20 02:06 90 94 04/14/20 02:04 89 94 04/14/20 02:01 85 111/57 L 95 04/14/20 02:00 18 04/14/20 01:57 85 94 04/14/20 01:56 86 95 04/14/20 01:51 87 94 04/14/20 01:46 84 109/60 95 04/14/20 01:44 86 94 04/14/20 01:41 87 95 04/14/20 01:38 87 94 04/14/20 01:36 88 95 04/14/20 01:33 86 94 04/14/20 01:31 83 107/56 L 95 04/14/20 01:30 18 04/14/20 01:26 86 95 04/14/20 01:25 87 94 04/14/20 01:21 84 95 04/14/20 01:16 82 119/61 95 04/14/20 01:11 82 96 04/14/20 01:06 82 96 04/14/20 01:01 78 95 04/14/20 01:00 36.9 C 87 20 130/59 L 04/14/20 00:56 87 94 04/14/20 00:55 83 94 04/14/20 00:51 84 94 04/14/20 00:49 80 94 04/14/20 00:46 76 94 04/14/20 00:45 81 123/59 L 04/14/20 00:44 90 93 04/14/20 00:41 93 H 94 04/14/20 00:38 95 H 94 04/14/20 00:36 92 H 95 04/14/20 00:32 88 133/63 94 04/14/20 00:31 89 95 04/14/20 00:30 18 04/14/20 00:26 98 H 95 04/14/20 00:21 85 95 04/14/20 00:16 92 H 124/59 L 95 04/14/20 00:11 85 95 04/14/20 00:06 85 96 04/14/20 00:01 86 96 04/14/20 00:00 20 04/13/20 23:59 128/71 04/13/20 23:56 90 97 04/13/20 23:55 81 20 121/70 04/13/20 23:51 79 128/70 97 04/13/20 23:50 20 04/13/20 23:46 108 H 97 04/13/20 23:45 20 04/13/20 23:44 93 H 141/64 H 04/13/20 23:42 91 H 129/60 04/13/20 23:41 91 H 97 04/13/20 23:40 36.8 C 97 H 20 132/56 L 04/13/20 23:38 96 H 133/66 04/13/20 23:36 95 H 135/63 97 04/13/20 23:34 92 H 132/61 04/13/20 23:32 94 H 137/64 04/13/20 23:31 83 98 04/13/20 23:30 83 20 127/56 L 04/13/20 23:28 82 141/65 H 04/13/20 23:26 78 141/65 H 96 04/13/20 23:25 20 04/13/20 23:24 77 142/68 H 04/13/20 23:22 75 133/69 04/13/20 23:21 68 98 04/13/20 23:20 75 20 125/69 04/13/20 23:16 74 99 04/13/20 23:11 79 99 04/13/20 23:10 75 155/83 H 04/13/20 23:06 86 98 04/13/20 22:05 67 151/80 H 04/13/20 21:16 73 137/76 04/13/20 21:15 37.3 C 04/13/20 20:02 67 130/80 04/13/20 19:09 37.3 C 75 20 140/81 04/13/20 19:01 18 04/13/20 18:30 18 04/13/20 18:15 37.0 C 68 18 140/78 04/13/20 18:00 18 04/13/20 17:30 18 04/13/20 17:00 36.7 C 78 18 155/70 H 04/13/20 16:17 18 04/13/20 16:00 20 04/13/20 15:56 37.0 C 97 H 151/92 H Pain Intensity Bilateral Abdomen: Pain Intensity: 3 Transfer of Care Handoff Completed per policy Notes Mental Status: alert / awake / arousable and participated in evaluation Patient Amnestic to Procedure: Yes Nausea / Vomiting: adequately controlled Pain: adequately controlled Airway Patency, RR, SpO2: stable & adequate BP & HR: stable & adequate Hydration State: stable & adequate Neuraxial Anesthesia: was administered and sensory block is resolving Anesthetic Complications: no major complications apparent
[2020-04-14] MEDS: DOCUSATE SODIUM 100 MG CAP PO SCH (20:07)
[2020-04-14] MEDS ORDERED: LACTATED RINGER'S 1,000 ML IV ONE (20:46)
[2020-04-15] MEDS ORDERED: MEPERIDINE HCL 50 MG/ML CARP IV PRN (04:17)
[2020-04-15] MEDS ORDERED: KETOROLAC 30 MG/ML VIAL IV PRN (04:17)
[2020-04-15] MEDS ORDERED: PROMETHAZINE HCL 25 MG in SODIUM CHLORIDE 0.9% 50 ML IV PRN (04:17)
[2020-04-15] MEDS ORDERED: DiphenhydrAMINE HCL 50 MG/ML VIAL IV PRN (04:17)
[2020-04-15 06:24] LABS: Basophils # (auto) 0.01 K/uL (0-0.2); Basophils % (auto) 0.1 %; Eosinophils # (auto) 0.03 K/uL (0-0.5); Eosinophils % (auto) 0.2 %; Hematocrit (blood only) 29.1 % (37-47); Immature Granulocytes # (auto) 0.07 K/uL (0.00-0.02); Immature Granulocytes % (auto) 0.4 %; Lymphocytes # (auto) 1.82 K/uL (1.2-3.4); Lymphocytes % (auto) 9.4 %; Mean Corpuscular Hgb Conc 34.4 g/dL (32-36); Mean Corpuscular Volume 87.4 fL (80-100); Mean Platelet Volume 10.1 fL (7.4-10.4); Monocytes # (auto) 1.25 K/uL (0.11-0.59); Monocytes % (auto) 6.4 %; Neutrophils # (auto) 16.28 K/uL (1.4-6.5); Neutrophils % (auto) 83.5 %; Platelet Count 162 K/uL (130-400); RDW Coefficient of Variation 13.9 % (11.5-14.5); RDW Standard Deviation 44.4 fL (36.4-46.3); Red Blood Count 3.33 M/uL (4.2-5.4); White Blood Count 19.46 K/uL (4.8-10.8)
--- NOTE | 2020-04-15 07:26 | Obstetrical Progress Note ---
Date of Service April 15, 2020 Assessment & Plan (1) S/P section: Routine care. Encourage ambulation. Work on breast feeding. Day #:: 1 Subjective Ambulation: limited ambulation Voiding: no voiding problems (has voided once since jensen out) Passing Gas:: No Diet Tolerance:: regular diet Lochia:: Small Feeding Type:: breast feeding Physical Exam Constitutional WD/WN, vitals as above Cardiovascular Extremities: + edema (tr-+1); no calf tenderness Gastrointestinal (Abdomen) obese, soft, appropriately tender ff/appropriately tender at u Psychiatric A+Ox3, euthymic affect Results & Data Vital Signs (Past 12 Hours) Vital Signs Temp Pulse Resp BP Pulse Ox 04/15/20 04:00 37.0 C 90 18 126/79 99 04/15/20 03:00 18 99 04/15/20 02:00 18 99 04/15/20 01:00 18 99 04/15/20 00:00 36.9 C 94 H 18 128/84 99 04/14/20 22:00 18 96 04/14/20 21:00 36.9 C 20 97 04/14/20 20:15 37.4 C 98 H 18 109/60 96
[2020-04-15] MEDS: PRENATAL VITAMIN 1 TAB PO SCH (08:19)
[2020-04-15] MEDS: DOCUSATE SODIUM 100 MG CAP PO SCH ×2 (08:19→20:18)
[2020-04-15] MEDS: SIMETHICONE 80 MG CHEW PO SCH ×4 (08:19→20:02)
[2020-04-15] MEDS: FERROUS SULFATE 325 MG TAB PO SCH (08:19)
[2020-04-15] MEDS: FLUTICASONE FUROATE 100MCG 14 PUFFS/INHALER INH SCH (08:20)
[2020-04-15] MEDS: FAMOTIDINE 20 MG TAB PO SCH (08:21)
[2020-04-15] MEDS: OXYCODONE/ACETAMINOPHEN 5mg/325mg TAB PO PRN ×4 (08:22→22:12)
[2020-04-15] MEDS: IBUPROFEN 600 MG TAB PO PRN ×4 (08:22→22:12)
[2020-04-15] MEDS ORDERED: NON-FORMULARY MEDICATION (Prenat.Vits,Cal,Min-Iron-Folic 1 TAB) PO SCH (09:00)
[2020-04-15] MEDS ORDERED: bisacodyL 5 MG TABEC PO SCH (20:00)
[2020-04-15] MEDS: MONTELUKAST SODIUM 10 MG TABLET PO SCH (20:02)
[2020-04-16] MEDS: IBUPROFEN 600 MG TAB PO PRN ×4 (05:38→23:21)
[2020-04-16] MEDS: OXYCODONE/ACETAMINOPHEN 5mg/325mg TAB PO PRN ×4 (05:39→23:21)
[2020-04-16 06:50] LABS: Hemoglobin 10.3 g/dL (12.0-16.0)
--- NOTE | 2020-04-16 06:52 | Obstetrical Progress Note ---
Date of Service <Willem Silver DO - Last Filed: 04/16/20 06:52> April 16, 2020 Assessment & Plan <Willem Silver DO - Last Filed: 04/16/20 06:52> (1) S/P section: -POD#2 -Vitals reviewed, WNL - GBS -, Blood Type O+ - Clinically stable. - Feels well today. Eating well, voiding well, ambulating well. - Pain well controlled. - Routine post care - After discharge will have [address] Keller. Day #:: 2 Subjective <Willem Silver DO - Last Filed: 04/16/20 06:52> Ambulation: ambulating normally Voiding: no voiding problems Passing Gas:: Yes Diet Tolerance:: regular diet Lochia:: Small Feeding Type:: breast feeding Current Pain Level(1-10): 4 (improves with analgesics) Patient is a 29 POD#2. Patient states that she is doing well this morning and that her pain is well controlled. She has no complaints at this point in time. Constitutional: + chills (noted slight chills while , improved with blanket); no fever Respiratory: no cough, no dyspnea and no wheezing Cardiovascular: + edema; no chest pain, no dyspnea, no dyspnea on exertion and no calf pain Breast: no breast pain Gastrointestinal: + abdominal pain (appropriate, lower quadrants); no nausea and no vomiting Genitourinary (female): no dysuria Neurologic: no headache(s) Physical Exam <Willem Silver DO - Last Filed: 04/16/20 06:52> Constitutional WD/WN, vitals as above Respiratory normal respiratory effort, lungs clear to auscultation Cardiovascular Rate/Rhythm: regular rate and regular rhythm Heart Sounds: normal S1 and normal S2; no click, no gallop, no murmur and no cardiac rub Extremities: + edema (+1); no calf tenderness Gastrointestinal (Abdomen) Inspection/Auscultation: abdomen normal to inspection, normal bowel sounds and + abdominal surgical incision (Clean and Dry, No Pus noted. ) Percussion/Palpation: abdomen soft; abdomen nontender Genitourinary OB Exam Abdomen: + fundal height Fundus: + firm and + relation to umbilicus (2cm below ); not tender and not boggy Results & Data <Willem Silver DO - Last Filed: 04/16/20 06:52> Vital Signs (Past 12 Hours) Vital Signs Temp Pulse Resp BP Pulse Ox 04/15/20 23:30 36.9 C 103 H 18 127/78 04/15/20 19:35 36.9 C 100 H 18 123/76 97 <Nilsa Wagner MD, FACOG - Last Filed: 04/16/20 07:31> Co-Signing Physician Notes Resident Physician Supervision Note: I interviewed and examined the patient. Discussed with Dr. Silver and agree with findings and plan as documented in the note. Any exceptions or clarifications are listed here: Doing well . routine PP care. Documented By: Nilsa Wagner MD, FACOG Resident Activity Tracking <iWllem Silver DO - Last Filed: 04/16/20 06:52> Resident Involvement: Resident Care Provided Care Provided: OB Delivery
[2020-04-16] MEDS: DOCUSATE SODIUM 100 MG CAP PO SCH ×2 (08:59→21:46)
[2020-04-16] MEDS: SIMETHICONE 80 MG CHEW PO SCH ×4 (08:59→21:46)
[2020-04-16] MEDS: FAMOTIDINE 20 MG TAB PO SCH (08:59)
[2020-04-16] MEDS: FLUTICASONE FUROATE 100MCG 14 PUFFS/INHALER INH SCH (08:59)
[2020-04-16] MEDS: PRENATAL VITAMIN 1 TAB PO SCH (09:00)
[2020-04-16] MEDS: FERROUS SULFATE 325 MG TAB PO SCH (09:00)
[2020-04-16] MEDS ORDERED: bisacodyL 10 MG SUPP PR PRN (10:00)
[2020-04-16] MEDS: MONTELUKAST SODIUM 10 MG TABLET PO SCH (21:46)
--- NOTE | 2020-04-17 07:07 | Obstetrical Progress Note ---
Date of Service <Willem Silver DO Last Filed: 04/17/20 07:07> April 17, 2020 Assessment & Plan <Willem Silver DO Last Filed: 04/17/20 07:07> (1) S/P section: -POD#3 -Vitals reviewed, WNL - GBS -, Blood Type O+ - Clinically stable. - Feels well today. Eating well, voiding well, ambulating well. - Pain well controlled. - Routine post care - Discharge instructions discusssed with patient - After discharge will have [address] Keller. Day #:: 3 Subjective <Willem Silver DO Last Filed: 04/17/20 07:07> Ambulation: ambulating normally Voiding: no voiding problems Passing Gas:: Yes Diet Tolerance:: regular diet Lochia:: Small Feeding Type:: breast feeding Current Pain Level(1-10): 1 (improved with analgesics) Patient is a 29 POD#3. Patient states that she is doing well this morning and that her pain is well controlled. She has no complaints at this point in time. Constitutional: no fever and no chills Respiratory: no cough, no dyspnea and no wheezing Cardiovascular: + edema; no chest pain, no dyspnea, no dyspnea on exertion and no calf pain Breast: no breast pain Gastrointestinal: no abdominal pain, no nausea and no vomiting Genitourinary (female): no dysuria Neurologic: no headache(s) Physical Exam <Willem Silver DO Last Filed: 04/17/20 07:07> Constitutional WD/WN, vitals as above Respiratory normal respiratory effort, lungs clear to auscultation Cardiovascular Rate/Rhythm: regular rate and regular rhythm Heart Sounds: normal S1 and normal S2; no click, no gallop, no murmur and no cardiac rub Extremities: + edema (+1); no calf tenderness Gastrointestinal (Abdomen) Inspection/Auscultation: abdomen normal to inspection, normal bowel sounds and + abdominal surgical incision (Clean and Dry, No Pus noted. ) Percussion/Palpation: abdomen soft; abdomen nontender Genitourinary OB Exam Abdomen: + fundal height Fundus: + firm and + relation to umbilicus (3cm below ); not tender and not boggy Results & Data <Willem GarcianDO - Last Filed: 04/17/20 07:07> Vital Signs (Past 12 Hours) Vital Signs Temp Pulse Pulse Resp BP Pulse Ox 04/17/20 00:05 36.7 C 106 H 16 121/74 98 04/16/20 19:30 37.1 C 109 H 18 134/82 97 <Thomas Marrero MD - Last Filed: 04/17/20 07:58> Co-Signing Physician Notes Patient seen and evaluated and agree with the above findings and plan. Stable for discharge Resident Activity Tracking <Willem Silver DO - Last Filed: 04/17/20 07:07> Resident Involvement: Resident Care Provided Care Provided: OB Delivery
[2020-04-17] MEDS: PRENATAL VITAMIN 1 TAB PO SCH (09:21)
[2020-04-17] MEDS: FERROUS SULFATE 325 MG TAB PO SCH (09:21)
[2020-04-17] MEDS: SIMETHICONE 80 MG CHEW PO SCH ×3 (09:21→18:13)
[2020-04-17] MEDS: FLUTICASONE FUROATE 100MCG 14 PUFFS/INHALER INH SCH (09:21)
[2020-04-17] MEDS: FAMOTIDINE 20 MG TAB PO SCH (09:21)
[2020-04-17] MEDS: OXYCODONE/ACETAMINOPHEN 5mg/325mg TAB PO PRN ×2 (09:22→18:12)
[2020-04-17] MEDS: IBUPROFEN 600 MG TAB PO PRN ×2 (09:22→18:13)
[2020-04-17] MEDS: DOCUSATE SODIUM 100 MG CAP PO SCH (09:22)
--- NOTE | 2020-04-18 18:09 | Discharge Summary ---
Date of Service April 18, 2020 Admission HPI Per Admitting Provider 29 yo F with EDC 04/09/20 admitted with report of SROM this morning, for induction of labor. This morning reports several gushes of fluid in a row, clear with some blood tinge, possibly around 8am however is not 100% sure. Was seen by Dr. Marrero today in the office and found to be ruptured, 2cm dilated, 75% effaced. plan does not include epidural at this time. Confirms good movement, no contractions. Medical Hx: PCOS (this was spontaneous, has Hx of irregular periods sometimes q3 months prior to ), Asthma (at home uses montelukast daily, budesonide inh daily, albuterol inh PRN) Surgical Hx: wisdom tooth extraction Negotiations Director Hx: no Hx abnormal PAPs; Hx chlamydia infection 2 years ago (chlamydia testing 12/2019 negative) Social Hx: Hx marijuana abuse (NOB UDS negative), lives with FOB Labs: Blood type: O+ Antibody screen: negative Rubella status: immune VDLR/RPR: nonreactive Gonorrhea: negative Chlamydia: negative HIV: negative GBS: negative HbSAg: negative Glucose tolerance test x2: normal Discharge Data Consultations 04/13/20 11:45 Consult Anesthesiology Stat Procedures Performed Operation Date: 04/14/20 08:50 Actual Procedures p Section in LD; LIVE MALE AT 0936(Bilateral) - Berny Keller Jr, MD, [facility] Course (1) SROM (spontaneous rupture of membranes): Rupture of membranes had been confirmed in the office prior to admission to labor and delivery. The patient was observed for a period of time before initiating Pitocin per induction protocol. An intrauterine pressure catheter was placed in order to better monitor the contractions. The patient was started on the Pitocin which got up to 20 milliunits/min. At which time she became uncomfortable and anesthesia was consulted and an epidural was placed. The catheter stopped functioning and a new intrauterine pressure catheter was placed. The cath that her continue to work intermittently. The patient's Pitocin was titrated up to 40 milliunits/min. Despite 14 hours of Pitocin the patient never progressed past 5 cm. At this point the diagnosis of failure to progress was made and the patient was taken to the operating room where she underwent the above listed procedures. Operative findings showed a viable male infant with Apgars of 6 and 9 and a weight of 9 pounds 0 ounces arterial cord pH of 7.27 and a venous cord pH of 7.37. Postoperatively the patient did well, Zamora catheter was removed on the first postoperative day H&H came back at 10 and 30. By the third postoperative day the patient was tolerating a regular diet and ambulating without difficulty. She was discharged home with routine discharge instructions and the prescriptions as for medications as listed she will follow-up in the office for a postoperative check but as always she is been instructed to call with any questions problems or difficulties. Coding Level of Care Code None Diagnoses SROM (spontaneous rupture of membranes)
--- NOTE | 2020-04-18 19:01 | Operative Report (OR) ---
DATE OF OPERATION: 04/14/2020 PREOPERATIVE DIAGNOSES: 1. Postdates . 2. Prolonged rupture of membranes. 3. Failure to progress. POSTOPERATIVE DIAGNOSES: 1. Postdates . 2. Prolonged rupture of membranes. 3. Failure to progress. PROCEDURE PERFORMED: Primary low cervical transverse section. SURGEON: Berny Keller MD. TREE WRAPPER: Nilsa Wagner MD. ANESTHESIA: Epidural. FINDINGS: Viable male infant with Apgars of 6 and 9 and a weight of 9 pounds 0 ounces, normal-appearing tubes bilaterally, polycystic-appearing ovaries bilaterally. PROCEDURE IN DETAIL: The patient was taken to the operating room and after epidural anesthesia, was placed in supine position, draped and prepped in the usual fashion. Pfannenstiel type incision was made. Underlying subcutaneous tissue was dissected down to the ventral abdominal fascia, which was nicked and opened in a horizontal manner. Preperitoneal fascia was dissected away until the peritoneal cavity was entered and opened in a vertical manner. Elvis self-retaining retractor was inserted into the incision. The peritoneum overlying the uterus was elevated, opened in a semi-lunar fashion, the inferior margin of which was taken down creating the bladder flap. The uterus was entered sharply and extended in a semilunar fashion manually. Viable male was delivered. Cord was clamped and cut and the baby was passed off to pediatrics who was in attendance for the delivery. Cord gases and cord blood samples were obtained. Placenta was delivered spontaneously and the uterus was exteriorized. The uterine cavity was wiped clean of any residual blood, tissue and/or clot. The uterine incision was closed with 2 layers of 4-0 Vicryl, the first a running locking stitch, the second an imbricating stitch. Hemostasis was achieved and the uterus was returned to the pelvic cavity. Pericolic gutters were cleared bilaterally of any blood, tissue and/or clot. The pelvis was thoroughly irrigated with 1000 mL of warm saline, which was removed. Incision was inspected for hemostasis again, which was present. Sponge and needle count was correct. Rectus muscles were plicated in the midline with a running 2-0 Vicryl suture. Fascia was closed laterally with a running 0 Vicryl stitch. The subcutaneous tissue was irrigated with warm saline and reapproximated with interrupted 2-0 plain sutures. The skin incision was closed with a 4-0 Monocryl subcuticular stitch. Sterile dressing was applied and the patient was taken to the recovery room in satisfactory condition. I attest to the content of the Intraoperative Record and any orders documented therein. Any exception s are noted below.
== END 2020-04-17 18:34 | disposition home or self-care (01) | DRG 788 ==
LOC: 4S1 11:38 → 4S2 04-14 13:51